=== PATIENT | female | born 1950 | race Two or more races ===

== ENCOUNTER 2019-06-25 00:42 | Emergency (ER) | payer SELFPAY ==
[~2019-06-25] VITALS: Ht 152.4 cm; Wt 59.1 kg
[2019-06-25] MEDS ORDERED: SODIUM CHLORIDE 0.9% 500 ML IV ONE ×2 (01:15→02:15)
[2019-06-25 01:20] LABS: BASOPHILS % (AUTO) 0.5 % (0.0-2.0); EOSINOPHILS % (AUTO) 0.4 % (1.0-6.0); HEMATOCRIT 34.5 % (36-46); HEMOGLOBIN 11.5 g/dL (12.0-16.0); LYMPHOCYTES # (AUTO) 2.2 K/uL (1.0-4.8); LYMPHOCYTES % (AUTO) 33.1 % (22.0-44.0); MEAN CORPUSCULAR HEMOGLOBIN 31.6 pg (26.0-34.0); MEAN CORPUSCULAR HGB CONC 33.4 G/dL (31.0-37.0); MEAN CORPUSCULAR VOLUME 95 fL (80-100); MONOCYTES # (AUTO) 0.4 K/uL (0.1-1.0); MONOCYTES % (AUTO) 6.1 % (2.0-9.0); NEUTROPHILS % (AUTO) 59.9 % (40.0-70.0); PLATELET COUNT (AUTO) 266 K/uL (150-450); RED BLOOD CELL COUNT(AUTO) 3.65 MIL/uL (4.00-5.20); RED CELL DISTRIBUTION WIDTH 15.3 % (11.5-14.5)
[2019-06-25 01:29] LABS: ANION GAP 10 mmol/L (8-16); CALCIUM, TOTAL 8.2 mg/dL (8.8-10.5); CARBON DIOXIDE 23 mmol/L (22-29); CHLORIDE 110 mmol/L (98-107); CREATININE 0.67 mg/dL (0.60-1.30); GLOMERULAR FILTR. RATE CALC > 60 mL/min (>60); GLUCOSE,RANDOM 125 mg/dL (70-110); POTASSIUM 3.1 mmol/L (3.5-5.1); SODIUM SERUM 143 mmol/L (136-145); UREA NITROGEN, BLOOD 9 mg/dL (7-18)
[2019-06-25 01:31] LABS: PROTHROMBIN TIME 10.2 SEC (9.4-11.6)
[2019-06-25 01:39] LABS: TROPONIN I < 0.02 ng/mL (0.00-0.05)
[2019-06-25 01:42] LABS: LACTIC ACID 2.7 mmol/L (0.4-2.0)
[2019-06-25 01:47] LABS: AMMONIA 13 umol/L (11-32)
[2019-06-25 01:54] LABS: ALANINE AMINOTRANSFERASE 32 U/L (12-78); ALBUMIN 3.3 g/dL (3.4-5.0); ALKALINE PHOSPHATASE 117 U/L (46-116); ASPARTATE AMINOTRANSFERASE 35 U/L (15-37); BILIRUBIN,TOTAL 0.1 mg/dL (0.1-1.0); CREATINE KINASE, TOTAL ONLY 180 U/L (26-192); TOTAL PROTEIN, SERUM 6.7 g/dL (6.4-8.2)
[2019-06-25] MEDS: POTASSIUM CHL 10 MEQ/WATER 50 ML IV SCH ×2 (02:30→03:10)
[2019-06-25] MEDS ORDERED: POTASSIUM CHLORIDE 20 MEQ ER TABLET PO ONE (02:45)
[2019-06-25 05:03] VITALS: BP 138/74
== END 2019-06-25 05:12 | disposition home or self-care (01) ==
LOC: EMS 00:46
DX: F10.129 Alcohol abuse with intoxication, unspecified (principal); F12.929 Cannabis use, unspecified with intoxication, unspecified; R11.10 Vomiting, unspecified
CPT/HCPCS: 36415; 70450; 71045; 80053; 82140; 82550; 83605; 84484; 85025; 85610; 85730; 93005; 96360; 96361; 99285; G0480; J7040; J3480